=== PATIENT | female | born 1995 | race Hispanic/Latino ===

== ENCOUNTER 2017-08-21 15:32 | Emergency (ER) | payer OTHER ==
[2017-08-21 16:45] LABS: BEDSIDE GLUCOSE 103 MG/DL (70-105)
[2017-08-21 16:50] LABS: BASO % 0.2 % (0.0-1.0); EOS % 0.4 % (0.0-3.0); HEMATOCRIT 30.9 % (36.0-47.0); HEMOGLOBIN 10.3 g/dl (12.0-16.0); IMMATURE GRANULOCYTE % 0.4 % (0-3.0); LYMPH # 1.2 10^3/uL (1.5-6.5); LYMPH % 12.5 % (24.0-44.0); MEAN CORPUSCULAR HEMOGLOBIN 31.6 pg (27.0-33.0); MEAN CORPUSCULAR HGB CONC 33.3 g/dl (32.0-36.5); MEAN CORPUSCULAR VOLUME 94.8 fl (80.0-96.0); MONO # 0.6 10^3/uL (0.0-0.8); MONO % 5.8 % (0.0-5.0); NEUTROPHILS % 80.7 % (36.0-66.0); PLATELET COUNT, AUTOMATED 263 10^3/uL (150-450); RED BLOOD COUNT 3.26 10^6/uL (4.00-5.40); RED CELL DISTRIBUTION WIDTH 12.3 % (11.5-14.5)
[2017-08-21 17:20] LABS: ANION GAP 10 MEQ/L (8-16); BLOOD UREA NITROGEN 8 MG/DL (7-18); CALCIUM LEVEL 8.9 MG/DL (8.5-10.1); CARBON DIOXIDE LEVEL 23 MEQ/L (21-32); CHLORIDE LEVEL 105 MEQ/L (98-107); CREATININE FOR GFR 0.52 MG/DL (0.55-1.30); GLOMERULAR FILTRATION RATE > 60.0 (>60); GLUCOSE, FASTING 100 MG/DL (70-100); POTASSIUM SERUM 3.9 MEQ/L (3.5-5.1); SODIUM LEVEL 138 MEQ/L (136-145)
== END 2017-08-21 18:46 | disposition home or self-care (01) ==
LOC: M ED 15:32
DX: O99.89 Other specified diseases and conditions complicating pregnancy, childbirth and the puerperium (principal); R55 Syncope and collapse; Z88.1 Allergy status to other antibiotic agents; Z3A.23 23 weeks gestation of pregnancy
CPT/HCPCS: 84443; 93005

== ENCOUNTER 2017-12-06 12:43 | Inpatient (IN) | payer OTHER ==
[2017-12-06] MEDS ORDERED: LR 1,000 ML IV (13:24)
[2017-12-06 13:47] LABS: HEMATOCRIT 28.4 % (36.0-47.0); HEMOGLOBIN 9.2 g/dl (12.0-15.5); MEAN CORPUSCULAR HGB CONC 32.4 g/dl (32.0-36.5); MEAN CORPUSCULAR VOLUME 86.3 fl (80.0-96.0); PLATELET COUNT, AUTOMATED 269 10^3/uL (150-450); RED BLOOD COUNT 3.29 10^6/uL (4.00-5.40); RED CELL DISTRIBUTION WIDTH 12.7 % (11.5-14.5); WHITE BLOOD COUNT 11.3 10^3/uL (4.0-10.0)
[2017-12-06] MEDS: BICITRA 30ML SOLN UDC PO (13:53)
[2017-12-06] MEDS ORDERED: OXYTOCIN INJ 10 UNITS/ML VIAL (J2590) As Ordered ×4 (14:00)
[2017-12-06] MEDS ORDERED: MORPHINE PRES-FREE INJ 10 MG/10 ML VIAL (J2274) As Ordered (14:00)
[2017-12-06] MEDS ORDERED: NALOXONE INJ 0.4 MG/1 ML VIAL (J2310) IV ×2 (14:30)
[2017-12-06] MEDS ORDERED: ePHEDrine SULFATE 25 MG/5 ML(5MG/ML) SYRINGE As Ordered (14:30)
[2017-12-06] MEDS ORDERED: METOCLOPRAMIDE INJ 10MG/2ML VIAL (J2765) IV ×3 (14:30→16:15)
[2017-12-06] MEDS ORDERED: NALBUPHINE HCL 10 MG/ML AMP (J2300) IV (14:30)
[2017-12-06] MEDS ORDERED: ONDANSETRON 4MG/2ML VIAL (J2405) IV ×2 (14:30→16:15)
[2017-12-06] MEDS ORDERED: PHENYLephrine HCL 500 MCG/5 ML (100MCG/ML) SYRINGE (J2370) As Ordered (14:30)
[2017-12-06] MEDS ORDERED: ONDANSETRON 4MG/2ML VIAL (J2405) As Ordered (15:01)
[2017-12-06] MEDS ORDERED: RHOGAM 300 MCG (1500 IU) INJ (J2790) IM (15:45)
[2017-12-06] MEDS ORDERED: MEASLES,MUMPS,RUBELLA VACCINE INJ (MMR-II) (90707) SC (15:45)
[2017-12-06] MEDS ORDERED: PERCOCET 5MG/325MG TAB PO ×2 (15:45→16:15)
[2017-12-06] MEDS ORDERED: fentaNYL 100 MCG/2 ML INJECTION (J3010) IV (16:15)
[2017-12-06] MEDS ORDERED: MEPERIDINE INJ 25 MG/ML VIAL (J2175) IV (16:15)
[2017-12-06] MEDS: LR 1,000 ML IV ×3 (17:38→23:11)
[2017-12-06] MEDS: KETOROLAC 30 MG/ML VIAL (J1885) IV ×2 (17:38→23:11)
[2017-12-06] MEDS: LACTATED RINGER'S 1000 ML IV (17:57)
[2017-12-06] MEDS: PRENATAL VITAMINS CHEWABLE TABLET PO (18:36)
[2017-12-06] MEDS: DOCUSATE SODIUM 100 MG CAP PO (22:04)
[2017-12-07] MEDS: KETOROLAC 30 MG/ML VIAL (J1885) IV ×2 (05:17→10:54)
[2017-12-07 08:10] LABS: HEMATOCRIT 22.5 % (36.0-47.0); HEMOGLOBIN 7.3 g/dl (12.0-15.5); MEAN CORPUSCULAR HEMOGLOBIN 28.2 pg (27.0-33.0); MEAN CORPUSCULAR HGB CONC 32.4 g/dl (32.0-36.5); MEAN CORPUSCULAR VOLUME 86.9 fl (80.0-96.0); PLATELET COUNT, AUTOMATED 204 10^3/uL (150-450); RED BLOOD COUNT 2.59 10^6/uL (4.00-5.40); RED CELL DISTRIBUTION WIDTH 12.9 % (11.5-14.5); WHITE BLOOD COUNT 10.4 10^3/uL (4.0-10.0)
[2017-12-07] MEDS: PRENATAL VITAMINS CHEWABLE TABLET PO (08:11)
[2017-12-07] MEDS: DOCUSATE SODIUM 100 MG CAP PO ×2 (08:11→21:11)
[2017-12-07] MEDS: IBUPROFEN 800 MG TAB PO (19:00)
[2017-12-07] MEDS: PERCOCET 5MG/325MG TAB PO (21:11)
[2017-12-08] MEDS: IBUPROFEN 800 MG TAB PO ×2 (02:38→11:44)
[2017-12-08] MEDS: PRENATAL VITAMINS CHEWABLE TABLET PO (08:38)
[2017-12-08] MEDS: DOCUSATE SODIUM 100 MG CAP PO (08:38)
[2017-12-08] MEDS: PERCOCET 5MG/325MG TAB PO (08:39)
[2017-12-08 08:49] LABS: HEMATOCRIT 23.1 % (36.0-47.0); HEMOGLOBIN 7.3 g/dl (12.0-15.5); MEAN CORPUSCULAR HEMOGLOBIN 28.1 pg (27.0-33.0); MEAN CORPUSCULAR HGB CONC 31.6 g/dl (32.0-36.5); MEAN CORPUSCULAR VOLUME 88.8 fl (80.0-96.0); PLATELET COUNT, AUTOMATED 240 10^3/uL (150-450); RED CELL DISTRIBUTION WIDTH 13.2 % (11.5-14.5); WHITE BLOOD COUNT 9.7 10^3/uL (4.0-10.0)
== END 2017-12-08 13:30 | disposition home or self-care (01) | DRG 766 ==
LOC: M LDO 12:43 → M LDI 13:18 → M OBS 17:18
PROVIDERS: Obstetrics & Gynecology
PROC: 10D00Z1 Extraction of Products of Conception, Low, Open Approach (ICD-10-PCS; principal; 2017-12-06 14:13)
DX: O34.211 Maternal care for low transverse scar from previous cesarean delivery (principal); Z37.0 Single live birth; Z3A.39 39 weeks gestation of pregnancy